=== PATIENT | female | born 1985 | race Caucasian/White ===

== ENCOUNTER 2017-12-04 00:11 | Inpatient (IN) | payer OTHER ==
[2017-12-04 00:47] VITALS: BMI 34.2
[2017-12-04] MEDS ORDERED: Lactated Ringer's 1,000 ML IV ONE ×2 (01:13→18:37)
[2017-12-04] MEDS ORDERED: Lactated Ringer's 1,000 ML IV SCH (01:15)
--- NOTE | 2017-12-04 01:18 | OBADHP ---
Datetime: 12/04/2017 01:08 Admit Comment, IP Provider: 32-year-old at 40 weeks and 3 days gestational age presents to OB ED complaining of gush of fluid at 10 PM. Patient also reports strong uterine contractions. Denies va ginal bleeding. Patient reports good movement. records reviewed. Past medical history hypothyroidism, history of genital HSV Past surgical history denies Medications vitamins, levothyroxine No known drug allergies Obstetrical history Social history no tobacco, drugs, alcohol Physical exam: Refer to physical exam findings Assessment: at 40 weeks gestational age with spontaneous rupture of membranes, early labor, GBS negative , category 1 heart tracing Plan: Admit to labor and delivery for management Patient requesting epidural, IV hydration and contact anesthesia Discussed plan with patient and all patient questions answered. Pelvic Type - PN: Adequate Extremities - PN: Normal Abdomen - PN: Normal Back - PN: Normal Breast - PN: Normal Lungs - PN: Normal Heart - PN: Normal Thyroid - PN: Normal Neurologic - PN: Normal HEENT - PN: Normal General - PN: Normal FHR - Baseline A Provider: 150s Amniotic Fluid Color, Provider: Clear Membranes, Provider: Ruptured Contraction Comments Provider: q2min Comments, ACOG Physical Exam: Cephalic Estimated weight 7-1/2 pounds Membranes grossly ruptured on exam No lesions Vital Signs Provider: Reviewed; Within Normal Limits IP Chief Complaint: Uterine contractions; Suspected ruptured membranes NICHD Variability Prov Fetus A: Moderate 6-25bpm NICHD Accel Fetus A IP Provider: 15X15 FHR Category Provider Fetus A: Category I NICHD Decel Fetus A IP Provider: None Dilatation, Provider: 2-3 Effacement, Provider: 90 Station, Provider: 0 Genitourinary Exam: Normal DTRs - PN: Normal EGA AdmitDate IP: 40.3 IP Adm Impression: Active labor; Ruptured Membranes IP Admit Plan: Admit to unit; Initiate labor protocol
[2017-12-04] MEDS ORDERED: Fentanyl/Bupivacaine HCl 250 ML EPI ONE (01:40)
[2017-12-04 01:43] LABS: BASO # 0.1 K/uL (0.0-0.2); BASO % 0.6 % (0.0-2.0); EOS # 0.1 K/uL (0.0-0.7); HEMOGLOBIN 13.3 g/dL (12.0-16.0); LYMPH # 3.2 K/uL (1.0-4.3); LYMPH % 27.8 % (20.0-40.0); MEAN CELL VOLUME 96.4 fl (81.0-99.0); MEAN CORPUSCULAR HEMOGLOBIN 34.1 pg (27.0-31.0); MEAN CORPUSCULAR HGB CONC 35.4 g/dL (33.0-37.0); MEAN PLATELET VOLUME 10.1 fl (7.2-11.7); MONO # 0.7 K/uL (0.0-0.8); MONO % 6.1 % (0.0-10.0); NEUT # 7.5 K/uL (1.8-7.0); NEUT % 64.5 % (50.0-75.0); NRBC % 0.1 % (0.0-0.0); RBC 3.9 Mil/uL (3.80-5.20); RED CELL DISTRIBUTION WIDTH 12.4 % (11.5-14.5); WHITE BLOOD COUNT 11.7 K/uL (4.8-10.8)
[2017-12-04] MEDS ORDERED: OXYTOCIN/0.9 % NS 20 UNIT/1,000 ML BAG IV SCH (09:45)
--- NOTE | 2017-12-04 10:38 | OBPN ---
Datetime: 12/04/2017 10:34 IP Progress Impression: Normal progression of labor IP Procedures: Sterile Vag Exam IP Progress Plan: Continue present management Membranes, Provider: Ruptured Amniotic Fluid Color, Provider: Clear Contraction Comments Provider: Q2-4 FHR - Baseline A Provider: 140's IP Progress Note Comment: 32 yo G1 at 40+3 wks w/ SROM at 10 p, s/p epidural GBS negative, FHT reassuring Continue current management Vital Signs Provider: Reviewed NICHD Accel Fetus A IP Provider: 15X15 FHR Category Provider Fetus A: Category I NICHD Variability Prov Fetus A: Moderate 6-25bpm Dilatation, Provider: 8-9 Effacement, Provider: 100 Station, Provider: 0 NICHD Decel Fetus A IP Provider: None
--- NOTE | 2017-12-04 14:18 | OBPN ---
Datetime: 12/04/2017 14:12 IP Progress Impression Other: VE unchanged IP Procedures: Sterile Vag Exam IP Progress Plan: Augmentation Membranes, Provider: Ruptured Amniotic Fluid Color, Provider: Clear Contraction Comments Provider: Q2-5 FHR - Baseline A Provider: 140's IP Progress Note Comment: 32 yo G1 at 40+3 wks w/ SROM at 10 pm VE unchanged, pitocin started GBS negative. FHT reassuring Vital Signs Provider: Reviewed NICHD Accel Fetus A IP Provider: 15X15 FHR Category Provider Fetus A: Category I NICHD Variability Prov Fetus A: Moderate 6-25bpm Dilatation, Provider: 8-9 Effacement, Provider: 100 Station, Provider: 0 NICHD Decel Fetus A IP Provider: None
--- NOTE | 2017-12-04 16:18 | OBPN ---
Datetime: 12/04/2017 16:12 IP Progress Impression: Arrest of dilatation/descent IP Informed Consent Obtain: Section Delivery; Risks, Benefits and Alternatives Discussed IP Procedures: Sterile Vag Exam IP Progress Plan: Deliver- Section Membranes, Provider: Ruptured Amniotic Fluid Color, Provider: Clear FHR - Baseline A Provider: 140's IP Progress Note Comment: 32 yo G1 at 40+3 wks w/ arrest of dilation at 8 cm w/ swollen cx Explained arrest of dilation to pt, her and clinic charge nurse. Will obtain consents for section and for possible transfusion FHR Category Provider Fetus A: Category II NICHD Variability Prov Fetus A: Moderate 6-25bpm Dilatation, Provider: 8 Effacement, Provider: 100 Station, Provider: 0 NICHD Decel Fetus A IP Provider: None
[2017-12-04] MEDS ORDERED: ceFAZolin 1 GM in Sodium Chloride 0.9% 100 ML IVPB ONE (17:06)
[2017-12-04] MEDS ORDERED: ceFAZolin IV 1 gm in Dextrose 1 GM/50 ML BAG IVPB ONE (17:15)
[2017-12-04] MEDS ORDERED: Lidocaine 2% MPF (5 ml) Inj ONE (17:24)
[2017-12-04] MEDS ORDERED: Bupivacaine HCl 0.5% PF (30 ml) Inj ONE (17:33)
[2017-12-04] MEDS ORDERED: Propofol 10 mg/ml Inj (20 ML) ONE (17:46)
[2017-12-04] MEDS ORDERED: Morphine 1 mg/ml preservative-free Inj(Duramorph) ONE (18:05)
[2017-12-04] MEDS ORDERED: Oxycodone/Acetaminophen 5/325 mg Tab PO PRN ×2 (18:39)
[2017-12-04] MEDS ORDERED: DiphenhydrAMINE 50 mg/ml Inj IVP PRN (18:50)
[2017-12-04] MEDS ORDERED: Naloxone 0.4 mg/ml Inj (Adult) IVP PRN (18:50)
--- NOTE | 2017-12-04 18:51 | OBDS ---
DELIVERY PERSONNEL Delivery Doctor: Solomon Muniz MD Syrup Machine Laborer: Chiara Salazar RN Anesthesiologist: Smita Beyer MD MATERNAL INFORMATION Delivery Anesthesia: Epidural Medications in Delivery: pitocin Estimated Blood Loss (ml): 800 Placenta Cultured: No Maternal Complications: Other Other Maternal Complications: Arrest of of first stage of labor Provider Comments: Pre-op dx: 32 yo G1 at 40+3 wks w/ arrest of dilation at 8 cm Post-op dx: Same Procedure: Primary low transverse section Surgeon : Flavio Sulfonation Equipment Operator: Dr. Vergara Anesthesia: Dr. Beyer Anesthesia: Epidural and sedation Findings: Viable female infant delivered through clear fluid at 1754. Apgars 9 and 9. Wt 4190 gms , 9#4. NL appearing uterus, tubes and ovaries. Complications: None EBL: 800mL LABOR SUMMARY EDC: 12/01/2017 00:00 No. Babies in Womb: 1 Attempted: No Labor Anesthesia: Epidural LABOR INFORMATION Reason for Induction: Not Applicable Onset of Labor: 12/03/2017 23:00 Oxytocin: N/A Group B Beta Strep: Negative Antibiotics # of Doses: 0 Antibiotics Time of Last Dose: 0 Steroids Given: None Reason Steroids Not Administered: Not Applicable MEMBRANES Membranes Rupture Method: Spontaneous Rupture of Membranes: 12/03/2017 22:00 Length of Rupture (hrs): 19.90 Amniotic Fluid Color: Clear Amniotic Fluid Amount: Moderate Amniotic Fluid Odor: None STAGES OF LABOR Stage 3 hrs: 0 Stage 3 min: 2 Total Time in Labor hrs: 18 Total Time in Labor min: 56 VAGINAL DELIVERY Episiotomy: None Laceration Extension: N/A Laceration Type: None Laceration Repair: Not Applicable Sponge Count Correct: N/A Sharps Count Correct: N/A CSECTION DELIVERY Primary Indication: Arrest of Descent CSection Urgency: Elective CSection Incidence: Primary Labor: Labor Elective: Elective BABY A INFORMATION Delivery Date/Time: 12/04/2017 17:54 Method of Delivery: Born in Route : No : N/A Forceps: N/A Vacuum Extraction: N/A Shoulder Dystocia : No SHOULDER DYSTOCIA BABY A Delivery Date/Time: 12/04/2017 17:54 PRESENTATION/POSITION BABY A Presentation: Cephalic Cephalic Presentation: Vertex Breech Presentation: N/A PLACENTA INFORMATION BABY A Placenta Delivery Time : 12/04/2017 17:56 Placenta Method of Delivery: Expressed Placenta Status: Delivered SCORES BABY A Heart Rate 1 min: >100 bpm Resp Effort 1 min: Good Cry Reflex Irritability 1 min: Cough or Sneeze or Pulls Away Muscle Tone 1 min: Active Motion Color 1 min: Body [place], Extremities Blue SCORE 1 MIN: 9 Heart Rate 5 min: >100 bpm Resp Effort 5 min: Good Cry Reflex Irritability 5 min: Cough or Sneeze or Pulls Away Muscle Tone 5 min: Active Motion Color 5 min: Body [place], Extremities Blue SCORE 5 MIN: 9 INFORMATION BABY A Gestational Age at Delivery: 40.3 Gestational Status: Term Infant Outcome : Liveborn Infant Condition : Stable Sex: Female IDENTIFICATION/MEDS BABY A ID Band Number: [id number] WEIGHT/LENGTH BABY A Birthweight (gms): 4190 Weight (lb): 9 Infant Weight (oz): 4 CORD INFORMATION BABY A No. Cord Vessels: 3 Nuchal Cord : N/A Nuchal Cord Other: n/a Cord pH Baby Venous: n/a Cord Blood Taken: Yes Suction: Mouth; Nose
[2017-12-05] MEDS ORDERED: DiphenhydrAMINE 50 mg/ml Inj IVP PRN (00:29)
[2017-12-05] MEDS ORDERED: Oxycodone/Acetaminophen 5/325 mg Tab PO PRN (00:29)
[2017-12-05] MEDS ORDERED: Lactated Ringer's 1,000 ML IV SCH (00:29)
[2017-12-05] MEDS ORDERED: Naloxone 0.4 mg/ml Inj (Adult) IVP PRN (00:29)
--- NOTE | 2017-12-05 04:41 | OP ---
Copied To: Susan Muniz MD Attending MD: Susan Muniz MD PROCEDURE DATE: 12/04/2017 PREOPERATIVE DIAGNOSIS: A 32-year-old G1 at 40 weeks and three days with arrest of dilation at 8 cm. POSTOPERATIVE DIAGNOSIS: A 32-year-old G1 at 40 weeks and three days with arrest of dilation at 8 cm. PROCEDURE: Primary low transverse section. SURGEON: Susan Muniz MD. CHAIRMAN & CHIEF EXECUTIVE OFFICER: Dr. Vergara, no qualified resident was available to assist. Dr. Vergara was a itinerant teacher assistant, participated in the surgery for the entire duration of the case. She helped create exposure. She also helped maintain hemostasis, operated throughout the case on the side of the patient that was across from her and assisted in the delivery of the by applying fundal pressure. This case could not have been completed without her assistance. ANESTHESIOLOGIST: Dr. Trace Beyer. ANESTHESIA: Epidural and sedation. FINDINGS: Viable female delivered through clear fluid at 1754. Apgars 9 and 9 at one at five minutes respectively. The weight was 4190 g or 9 pounds 4 ounces. Normal appearing uterus, tubes, and ovaries. COMPLICATIONS: None. ESTIMATED BLOOD LOSS: About 800 mL. DESCRIPTION OF PROCEDURE: The patient was taken to the operating room where the epidural anesthesia was bolused, and exam was done, and the baby's head was gently pushed upward. She was then prepped and draped in usual sterile fashion in the dorsal supine position with a leftward tilt. A Draper had been placed in the bladder. A Pfannenstiel skin incision was then made with the scalpel and carried through to the underlying layer of fascia with the Bovie. The fascia was incised in the midline and the incision was extended laterally with the Bovie over Myrtle. The inferior aspect of the fascial incision was then grasped with Enrique clamps, elevated and the underlying rectus muscles were dissected off bluntly and with the Bovie. Attention was then turned to the superior aspect of this incision which in a similar fashion was grasped, tented up with Enrique clamps, and the rectus muscles were dissected off bluntly and with the Bovie. The rectus muscles were then in the midline. The peritoneum was identified and entered digitally. The peritoneal incision was then extended superiorly and inferiorly with good visualization of the bladder. The bladder blade was then inserted. The vesicouterine peritoneum was identified, grasped with pickups, and entered sharply with Metzenbaum scissors. The incision was then extended laterally and a bladder flap was created digitally. The bladder blade was then reinserted in the lower uterine segment, it was incised in a transverse fashion with the scalpel. The uterine incision was then extended digitally in a cephalocaudad direction. The bladder blade was removed, and the infant's head delivered atraumatically. The nose and bulb were bulb suctioned, and the cord was clamped and cut. The was handed off to the awaiting the automobile body worker. Cord blood was collected. The placenta was then removed manually. The uterus was exteriorized and cleared off all clots and debris with a dry sponge curettage. The uterine incision was then repaired with 0 Vicryl in a running locked fashion. The second layer of the same suture was used in imbricating fashion for hemostasis and to reinforce the incision. The abdomen was then well irrigated. The uterus was returned to the abdomen. The gutters were cleared of all clots, and the peritoneum was closed with 2-0 chromic. The rectus muscle was then reapproximated with a few interrupted stitches of 0 chromic. The fascia was reapproximated with 0 Vicryl in a running fashion. The subcutaneous fat was well irrigated. The small space of the fat was closed with interrupted stitches using 2-0 plain gut. The skin was then closed in the subcuticular fashion with 4-0 Monocryl. The patient tolerated the procedure well. Sponge, lap, and needle counts were correct. The patient had received 2 g of Ancef prior to the procedure. The patient was taken to the recovery room in stable condition. Susan Muniz MD
[2017-12-05 06:51] LABS: BASO # 0.1 K/uL (0.0-0.2); BASO % 0.4 % (0.0-2.0); EOS % 0.1 % (0.0-4.0); HEMOGLOBIN 11.9 g/dL (12.0-16.0); LYMPH # 1.9 K/uL (1.0-4.3); LYMPH % 10.5 % (20.0-40.0); MEAN CORPUSCULAR HGB CONC 34.6 g/dL (33.0-37.0); MEAN PLATELET VOLUME 10.2 fl (7.2-11.7); MONO # 0.7 K/uL (0.0-0.8); MONO % 3.8 % (0.0-10.0); NEUT # 15.1 K/uL (1.8-7.0); NEUT % 85.2 % (50.0-75.0); NRBC % 0.1 % (0.0-0.0); RBC 3.5 Mil/uL (3.80-5.20); RED CELL DISTRIBUTION WIDTH 12.6 % (11.5-14.5); WHITE BLOOD COUNT 17.7 K/uL (4.8-10.8)
[2017-12-05] MEDS ORDERED: Multivitamin With Minerals Tab PO SCH (09:00)
--- NOTE | 2017-12-05 11:15 | OBPPN ---
Datetime: 12/05/2017 11:11 PP Pain Prov: Within normal limits PP Nausea Prov: Denies PP Flatus Prov: No PP BM Prov: No PP Breasts Prov: Normal PP Heart Prov: Normal PP Lungs Prov: Normal PP Abdomen/Uterus Prov: Normal PP Lochia Prov: Normal PP Vulva/Perineum Prov: Normal PP CVA Tenderness Prov: Normal PP Extremities Prov: Normal PP Comments Phys Exam Prov: fundus firm under umbilicus Incision clean/dry/intact PP Impression Prov: Normal progression PP Plan Prov: Continue present management PP Progress Note Prov: Patient denies CP, no SOB, no N/V, tolerating Po diet, ambulating/voidinging well, mild lochia, no flatus, abdominal pain tolerable with meds, A/P POD #1 1. COntinue orders 2. Percocet/MOtrin prn pain 3. Encourage ambulation/ IP PP Procedures: None Vital Signs Provider PP: Reviewed; Within Normal Limits
[2017-12-05] MEDS: Oxycodone/Acetaminophen 5/325 mg Tab PO PRN (11:54)
[2017-12-05] MEDS: Multivitamin With Minerals Tab PO SCH (11:54)
[2017-12-05] MEDS: Simethicone 80 mg Chewtab PO PRN ×3 (11:56→22:01)
[2017-12-06] MEDS: Oxycodone/Acetaminophen 5/325 mg Tab PO PRN (00:01)
[2017-12-06] MEDS: Simethicone 80 mg Chewtab PO PRN ×3 (04:51→18:52)
[2017-12-06] MEDS: Levothyroxine 25 MCG TAB PO SCH (06:45)
--- NOTE | 2017-12-06 10:20 | OBPPN ---
Datetime: 12/06/2017 10:15 PP Pain Prov: Within normal limits PP Nausea Prov: Denies PP Flatus Prov: No PP BM Prov: No PP Breasts Prov: Normal PP Heart Prov: Normal PP Lungs Prov: Normal PP Abdomen/Uterus Prov: Normal PP Lochia Prov: Normal PP Vulva/Perineum Prov: Normal PP CVA Tenderness Prov: Normal PP Extremities Prov: Normal PP C/S Incision Prov: Normal PP Progress Prov: Normal PP Impression Prov: Normal progression PP Plan Prov: Continue present management PP Progress Note Prov: She is able to sit up; eating breakfast H/H Blood type O neg A: S/P C-S day 1 Rh neg PLAN: cont postop care Rhogam if indicated Vital Signs Provider PP: Reviewed
[2017-12-06] MEDS: Multivitamin With Minerals Tab PO SCH (10:49)
[2017-12-07] MEDS: Simethicone 80 mg Chewtab PO PRN ×3 (01:00→13:58)
[2017-12-07] MEDS: Levothyroxine 25 MCG TAB PO SCH (06:49)
[2017-12-07] MEDS: Multivitamin With Minerals Tab PO SCH (08:49)
[2017-12-07] MEDS ORDERED: Docusate-Senna 50 mg-8.6 mg Tab PO STA (10:00)
--- NOTE | 2017-12-07 10:44 | OBDCSUM ---
Datetime: 12/07/2017 07:54 Discharged to, Provider: Home Follow up at, Provider: 10days for incision check Disch Instr Activity: Normal activity; May Shower Disch Instr Diet: Regular Discharge Instructions, Provider: Specific instructions as noted Discharge Diagnosis, Provider: Term Delivered Discharge Time: 12/07/2017 10:42 Follow up in weeks, Provider: grecia rebollar Discharge Instruct Comment, Prov: postop and pp Disch Activity Restrictions: No exercising; No lifting; No driving; No sexual activity; Nothing in v agina - [place], tampons, douche Discharge Comment, Provider: Medications prescribed on discharge: Motrin 600 mg 1 by mouth every 6 hours when necessary to be taken with food and water Senokot S2 by mouth nightly when necessary constipation vitamins Contraception after Delivery: Undecided
--- NOTE | 2017-12-07 10:45 | OBPPN ---
Datetime: 12/07/2017 09:12 PP Pain Prov: Within normal limits PP Nausea Prov: Denies PP Flatus Prov: Yes PP BM Prov: No PP Breasts Prov: Normal PP Heart Prov: Normal PP Lungs Prov: Normal PP Abdomen/Uterus Prov: Normal PP Lochia Prov: Normal PP Extremities Prov: Normal PP C/S Incision Prov: Normal PP Comments Phys Exam Prov: distended PP Impression Prov: Normal progression; difficulties PP Plan Prov: Discharge PP Progress Note Prov: s: tolerating reg diet. denies n/v. c/o feeling abd gas adn c/o no BM. +gas p assed yesterday taking motrin for pain. has not taken colace/senokot. frustrated w/ bec ause she feels baby is not latchng on well. i: pod3 cd constipation- has not yet taken stool softener, laxative/supp p: dulcolax supp prn. senokot s if desired later ambulate consult f/u. d/c home later today folllowing further gas passage/bowel movement. IP PP Procedures: None Vital Signs Provider PP: Within Normal Limits Vital Signs Provider Details PP: hgb 11.9
[2017-12-08 01:10] VITALS: BP 112/60; PULSE 80; RESP 20; TEMP 98.3; O2SAT 99
== END 2017-12-07 20:00 | disposition home or self-care (01) | DRG 765 ==
LOC: H.EROB2 00:11 → H.L&D 01:14 → H.OB/GYN 12-05 00:15
PROVIDERS: ADMIT Obstetrics & Gynecology; ATTEND Obstetrics & Gynecology
PROC: 4A1HXCZ Monitoring of Products of Conception, Cardiac Rate, External Approach (ICD-10-PCS; 2017-12-04)
PROC: 10D00Z1 Extraction of Products of Conception, Low, Open Approach (ICD-10-PCS; principal; 2017-12-05)
PROC: 3E0234Z Introduction of Serum, Toxoid and Vaccine into Muscle, Percutaneous Approach (ICD-10-PCS; 2017-12-05)
DX: O48.0 Post-term pregnancy (principal); O36.0930 Maternal care for other rhesus isoimmunization, third trimester, not applicable or unspecified; O62.0 Primary inadequate contractions; O62.1 Secondary uterine inertia; K59.00 Constipation, unspecified; Z37.0 Single live birth; Z3A.40 40 weeks gestation of pregnancy